=== PATIENT | female | born 1970 | race Caucasian/White ===

== ENCOUNTER 2019-07-17 14:43 | Emergency (ER) | payer BC ==
[2019-07-17 14:56] VITALS: BP 120/72; PULSE 77; RESP 18; TEMP 97.9
[2019-07-17] MEDS ORDERED: DEXAMETHASONE SOD PHOSPHATE 10 MG/ML 1 ML VIAL IM STA (15:39)
--- NOTE | 2019-07-17 15:41 | ED ---
Skin/Abscess/FB HPI - General Chief complaint: Skin/Abscess/Foreign Body Stated complaint: RASH Time Seen by Provider: 07/17/19 15:08 Source: patient Mode of arrival: ambulatory Limitations: no limitations - History of Present Illness Initial comments: Patient is a 49-year-old female presenting to emergency Department with her daughter for a chief complaint of a diffuse rash. [place] She reports developing a rash on bilateral upper extremities that has now spread throughout the rest of her body. Now she is also developing some swelling spots in her right arm. She does report continuous itching and occasional burning sensation. Reports taking [id number] Benadryl with minimal improvement. Denies any night sweats fevers or chills. Patient is unaware that she was exposed to any insects. - Related Data Previous Rx's Medication Instructions Recorded Permethrin 5% Cream [Elimite] 1 applic TOPICAL ONCE #1 bottle 07/17/19 Permethrin 5% Cream [Elimite] 1 applic TOPICAL ONCE #1 cream..g. 07/17/19 Allergies Allergy/AdvReac Type Severity Reaction Status Date / Time Penicillins Allergy Anaphylaxis Verified 07/17/19 14:56 Review of Systems ROS Statement: Those systems with pertinent positive or pertinent negative responses have been documented in the HPI. ROS Other: All systems not noted in ROS Statement are negative. Past Medical History Past Medical History: No Reported History History of Any Multi-Drug Resistant Organisms: None Reported Past Surgical History: Hysterectomy Past Psychological History: No Psychological Hx Reported Smoking Status: Current every day smoker Past Alcohol Use History: None Reported Past Drug Use History: None Reported General Exam Limitations: no limitations General appearance: alert, in no apparent distress Head exam: Present: atraumatic, normocephalic, normal inspection Eye exam: Present: normal appearance, PERRL, EOMI Pupils: Present: normal accommodation ENT exam: Present: normal exam Neck exam: Present: normal inspection, full ROM Respiratory exam: Present: normal lung sounds bilaterally Cardiovascular Exam: Present: regular rate, normal rhythm Extremities exam: Present: normal inspection, full ROM Back exam: Present: normal inspection, full ROM Neurological exam: Present: alert, oriented X3 Psychiatric exam: Present: normal affect, normal mood Skin exam: Present: warm, dry, intact, normal color, rash (Diffuse rash with multiple lesions throughout the body that are maculopapular in nature with some scaling present as well. Hive-like ALLERGIC reaction also noted Bilateral upper extremities. No lesions between webbing of the fingers.) Course Vital Signs 07/17/19 14:54 Temperature 97.9 F Pulse Rate 77 Respiratory 18 Rate Blood Pressure 120/72 O2 Sat by Pulse 100 Oximetry Medical Decision Making - Medical Decision Making Patient is a 49-year-old female presenting to emergency Department with a chief complaint of rash. [place] and she in the ED with her daughter with the exact same rash. I suspect the patient has scabies. However, she is also having ALLERGIC reaction to this case. Patient will be given 10 mg of Decadron in the ED. Patient also prescribed permethrin and given the rash fractures and how to use the medication. Patient also advised to wash all clothing and bed sheets. She was advised to have all family members treated with medication. Strict return parameters were thoroughly discussed with patient was understanding and agreeable. Discussed with physician. Disposition Clinical Impression: Scabies Disposition: HOME SELF-CARE Condition: Stable Instructions (If sedation given, give patient instructions): Scabies (ED) Additional Instructions: Please take prescribed medication as directed. Prescriptions: Permethrin 5% Cream [Elimite] 1 applic TOPICAL ONCE #1 bottle Permethrin 5% Cream [Elimite] 1 applic TOPICAL ONCE #1 cream..g. Is patient prescribed a controlled substance at d/c from ED?: No Referrals: None,Stated [Primary Care Provider] - 1-2 days Time of Disposition: 15:41
== END 2019-07-17 15:53 | disposition home or self-care (01) ==
LOC: EC 14:43
DX: B86 Scabies (principal); F17.200 Nicotine dependence, unspecified, uncomplicated; Z88.0 Allergy status to penicillin
CPT/HCPCS: 99282; 96372; J1100